=== PATIENT | female | born 1980 | race Caucasian/White ===

== ENCOUNTER 2021-08-08 16:36 | Emergency (ER) | payer BC ==
--- OUTSIDE RECORDS SUMMARY | 2021-08-08 16:41 | XMS REPORT | Continuity of Care Document ---
:1980 Author Organization [facility] t Address [address] [place] [address] Care Team Providers Name Role Phone Ngsalmaen_Tho Attending Clinician Unavailable Nguyen_Tho Admitting Clinician Unavailable Payers Payer Name Policy Type Policy Number Effective Date Expiration Date S ource [place] [id number] 2021 00:00:00 [place] Problems Condition Condition Condition Status Onset Resolution Last Treating Co mments Source Name Details Category Date Date Treatment Clinician Date Crohn's Crohn's Problem Active [place] [facility] Allergies, Adverse Reactions, Alerts Allergy Allergy Status Severity Reaction(s) Onset Inactive Treating Comm ents Source Name Type Date Date Clinician Penicill Allergy Active Mild to Anaphylaxis [place] g to moderate da substanc [facility] Social History Smoking Status Start Date Stop Date Source Heavy Tobacco Smoker [place] [facility] Medications Ordered Filled Start Stop Current Ordering Indication Dosage Frequency Signature Comments Components Source Medication Medication Date Date Medication? Clinician (SIG) Name Name azithromyci azithromyci No azithromyc [place] 250 mg n 250 mg in 250 mg da tablet TAKE tablet TAKE tablet [facility] 2 TABLETS 2 TABLETS TAKE 2 al (500 MG) BY (500 MG) BY TABLETS Health ORAL ROUTE ORAL ROUTE (500 MG) Outreac ONCE DAILY ONCE DAILY BY ORAL h FOR 1 DAY FOR 1 DAY ROUTE ONCE Program THEN 1 THEN 1 DAILY FOR TABLET (250 TABLET (250 1 DAY THEN MG) BY ORAL MG) BY ORAL 1 TABLET ROUTE ONCE ROUTE ONCE (250 MG) DAILY FOR 4 DAILY FOR 4 BY ORAL DAYS DAYS ROUTE ONCE DAILY FOR 4 DAYS Humira Humira No Humira [place] [facility] Saline Saline No 1spray( Q1D Saline [place] Nasal 0.65 Nasal 0.65 s) Nasal 0.65 da % spray % spray % spray [facility] aerosol aerosol aerosol al Take 1 Take 1 Take 1 Health spray every spray every spray Outreac day by day by every day h nasal route nasal route by nasal Program in the in the route in morning. morning. the morning. Immunizations Ordered Immunization Filled Immunization Date Status Commen ts Source Name Name Tdap Tdap 2018-03-09 Completed [place] 00:00:00 [facility] Vital Signs Vital Name Observation Time Observation Value Comments Source BP Diastolic 2021-04-05 00:00:00 70 [facility] Height 2021-04-05 00:00:00 63 [in_i] [facility] BMI (Body Mass 2021-04-05 00:00:00 35.4 kg/m2 [facility]) [facility] BP Systolic 2021-04-05 00:00:00 118 mm[Hg] [facility] Body Weight 2021-04-05 00:00:00 3200 [oz_av] [facility] Procedures Procedure Date / Time Performed Performing Clinician Sourc e Colonoscopy 2011-03-09 00:00:00 [facility] Tubal Ligation [place] [facility] Encounters Start End Encounter Admission Attending Care Care Encounter Source Date/Time Date/Time Type Type Clinicians Facility Department ID 2021-04-05 2021-04-05 Outpatient [facility] [id number] [place] 04:57:00 04:57:00 [facility] 2021-04-05 2021-04-05 [facility] [place] - [id number] [place] 00:00:00 00:00:00 Brent Coyle APRN-DIPPER AND BAKER-C: [facility] [address] [facility] S[place]q, [facility], [facility] [id number] [facility] , Ph. 2021-04-03 2021-04-03 Outpatient [facility] [id number] [place] 02:52:00 02:52:00 [id number] da [facility] Program Results This patient has no known results.
[2021-08-08] MEDS ORDERED: LIDOCAINE 1% MPF 5 ML VIAL ONE (16:58)
--- NOTE | 2021-08-08 17:16 | ER ---
Nurse's Notes [facility] Name: Vy Jauregui Age: 41 yrs Sex: Female : 1980 Arrival Date: 08/08/2021 Time: 16:38 Bed 11 Private MD: Diagnosis: Cutaneous abscess of right lower limb Presentation: 08/08 16:55 Chief complaint: Patient states: Spider bite to back of left thigh. Coronavirus screen: ld1 At this time, the client does not indicate any symptoms associated with coronavirus-19. Ebola Screen: No symptoms or risks identified at this time. Initial Sepsis Screen: Does the patient meet any 2 criteria? No. Patient's initial sepsis screen is negative. Does the patient have a suspected source of infection? No. Patient's initial sepsis screen is negative. Risk Assessment: Do you want to hurt yourself or someone else? Patient reports no desire to harm self or others. Onset of symptoms was August 08, 2021. 16:55 Method Of Arrival: Ambulatory ld1 16:55 Acuity: VEL 4 ld1 Triage Assessment: 16:56 General: Appears in no apparent distress. comfortable, Behavior is calm, cooperative, ld1 appropriate for age. Pain: Complains of pain in left hamstring Pain does not radiate. Pain currently is 8 out of 10 on a pain scale. EENT: No signs and/or symptoms were reported regarding the EENT system. Neuro: Level of Consciousness is awake, alert, obeys commands, Oriented to person, place, time, situation. Cardiovascular: Capillary refill < 3 seconds Patient's skin is warm and dry. Respiratory: Airway is patent Respiratory effort is even, unlabored. GI: Abdomen is flat, non-distended. : No signs and/or symptoms were reported regarding the genitourinary system. Derm: Abscess located on left leg. 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 - Social history:: Smoking status: Patient reports the use of cigarette tobacco products, smokes one-half pack cigarettes per day, Patient/guardian denies using alcohol. Screenin:59 Abuse screen: Denies threats or abuse. Nutritional screening: No deficits noted. tw2 Tuberculosis screening: No symptoms or risk factors identified. Fall Risk None identified. Assessment: 17:25 Reassessment: See triage assessment. General: Appears in no apparent distress. ld1 comfortable, Behavior is calm, cooperative, appropriate for age. Pain:. Vital Signs: 16:55 BP 129 / 76; Pulse 85; Resp 18; Temp 98.3(TE); Pulse Ox 99% on R/A; Weight 86.18 kg; ld1 Height 5 ft. 3 in. (160.02 cm); Pain 8/10; 16:55 Body Mass Index 33.66 (86.18 kg, 160.02 cm) ld1 ED Course: 16:38 Patient arrived in ED. am2 16:48 [facility]ah[facility]erril [facility] 16:48 Narendra Hawk MD is Attending Physician. [facility] 16:48 Bed in low position. Call light in reach. Pulse ox on. NIBP on. tw2 16:55 Rain Nicholas, JESUS is Primary Nurse. ld1 16:55 Triage completed. ld1 16:56 Arm band placed on right wrist. ld1 17:25 No provider procedures requiring assistance completed. Patient did not have IV access ld1 during this emergency room visit. Administered Medications: No medications were administered Medication: 17:25 VIS not applicable for this client. ld1 Outcome: 17:15 Discharge ordered by . [facility] 17:25 Discharged to home ambulatory. ld1 17:25 Condition: stable 17:25 Discharge instructions given to patient, Instructed on discharge instructions, follow up and referral plans. medication usage, Demonstrated understanding of instructions, follow-up care, medications, Prescriptions given X 2. 17:26 Patient left the ED. ld1 Signatures: Marnie Martins RN RN tw2 Rohini Rouse am2 Rain Nicholas RN RN ld1 Zahida Becerril FNP [place] [id number] Corrections: (The following items were deleted from the chart) 16:57 16:56 Allergies: No Known Allergies; ld1 ld1 16:57 16:56 PMHx: None; ld1 ld1 16:57 16:56 PSHx: None; ld1 ld1
--- NOTE | 2021-08-08 17:16 | EDPHYS ---
Physician Documentation [facility] Name: Vy Jauregui Age: 41 yrs Sex: Female : 1980 Arrival Date: 08/08/2021 Time: 16:38 Bed 11 Private MD: ED Physician Narendra Hawk HPI: 08/08 17:00 This 41 yrs old Female presents to ER via Ambulatory with complaints of spider bite. jh7 17:00 Onset: The symptoms/episode began/occurred 4 day(s) ago. Patient complains of spider jh7 bite to her left posterior thigh since Thursday. Reports increased redness, tenderness, and swelling. She denies any fever.. 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 - Social history:: Smoking status: Patient reports the use of cigarette tobacco products, smokes one-half pack cigarettes per day, Patient/guardian denies using alcohol. ROS: 17:00 Constitutional: Negative for fever, chills, and weight loss, Neck: Negative for injury, jh7 pain, and swelling, Cardiovascular: Negative for chest pain, palpitations, and edema, Respiratory: Negative for shortness of breath, cough, wheezing, and pleuritic chest pain, Abdomen/GI: Negative for abdominal pain, nausea, vomiting, diarrhea, and constipation, MS/Extremity: Negative for injury and deformity, Neuro: Negative for headache, weakness, numbness, tingling, and seizure. 17:00 Skin: Positive for abscess, Negative for abrasions, laceration(s). 17:00 All other systems are negative. Exam: 17:00 Constitutional: This is a well developed, well nourished patient who is awake, alert, jh7 and in no acute distress. ENT: Nares patent. No nasal discharge, no septal abnormalities noted. Tympanic membranes are normal and external auditory canals are clear. Oropharynx with no redness, swelling, or masses, exudates, or evidence of obstruction, uvula midline. Mucous membranes moist. Cardiovascular: Regular rate and rhythm with a normal S1 and S2. No gallops, murmurs, or rubs. Normal PMI, no JVD. No pulse deficits. Respiratory: Lungs have equal breath sounds bilaterally, clear to auscultation and percussion. No rales, rhonchi or wheezes noted. No increased work of breathing, no retractions or nasal flaring. Abdomen/GI: Soft, non-tender, with normal bowel sounds. No distension or tympany. No guarding or rebound. No evidence of tenderness throughout. Back: No spinal tenderness. No costovertebral tenderness. Full range of motion. MS/ Extremity: Pulses equal, no cyanosis. Neurovascular intact. Full, normal range of motion. Neuro: Awake and alert, GCS 15, oriented to person, place, time, and situation. Motor strength 5/5 in all extremities. Sensory grossly intact. Normal gait. 17:00 Skin: abscess, 2.5 cm abscess to the left posterior thigh the area is erythematous, indurated, and has a small area of fluctuance in the center.. Vital Signs: 16:55 BP 129 / 76; Pulse 85; Resp 18; Temp 98.3(TE); Pulse Ox 99% on R/A; Weight 86.18 kg; ld1 Height 5 ft. 3 in. (160.02 cm); Pain 8/10; 16:55 Body Mass Index 33.66 (86.18 kg, 160.02 cm) ld1 Procedures: 17:15 I \T\ D: Incision and drainage was performed for an abscess of the left left hamstring jh7 Prepped with Betadine, Anesthetized with 5 ml's 1% Lidocaine. Incised with #11 blade. Drained small amount purulent fluid. Loculations removed. Packed with iodoform gauze, Dressing: sterile 4x4 gauze, the patient tolerated the procedure well. MDM: 16:48 Patient medically screened. [facility] 17:25 Differential diagnosis: Abscess. Data reviewed: vital signs, nurses notes. Data [facility] interpreted: Pulse oximetry: is 99 %. Interpretation: normal. Counseling: I had a detailed discussion with the patient and/or guardian regarding: the historical points, exam findings, and any diagnostic results supporting the discharge/admit diagnosis, to return to the emergency department if symptoms worsen or persist or if there are any questions or concerns that arise at home. Response to treatment: the patient's symptoms have markedly improved after treatment. ED course: Patient remained stable throughout the ER visit. Home abscess care was discussed as well as her prescriptions. If the patient has any other concerns, she may return to the ER at any time. 08/08 17:14 Order name: I\T\D Setup; Complete Time: 17:18 [facility] Administered Medications: No medications were administered Disposition Summary: 08/08/21 17:15 Discharge Ordered Location: Home [facility] Problem: new [facility] Symptoms: have improved [facility] Condition: Stable [facility] Diagnosis - Cutaneous abscess of right lower limb [facility] Followup: [facility] - With: Private Physician - When: 2 - 3 days - Reason: Recheck today's complaints Discharge Instructions: - Discharge Summary Sheet tw2 - Skin Abscess 7 - Incision and Drainage [facility] Forms: - Work release form tw2 - Medication Reconciliation Form 7 - Thank You Letter [facility] - Antibiotic Education [facility] Prescriptions: - mupirocin 2 % Topical ointment - apply 1 application by TOPICAL route 3 times per day for 7 days; 1 tube; [facility] Refills: 0, Product Selection Permitted - Bactrim DS 800-160 mg Oral Tablet - take 1 tablet by ORAL route every 12 hours for 10 days; 20 tablet; Refills: 0, 7 Product Selection Permitted Signatures: Rain Nicholas, RN RN ld1 Zahida Becerril, SHALLOT PACKER SHALLOT PACKER 7 Corrections: (The following items were deleted from the chart) 16:57 16:56 Allergies: No Known Allergies; ld1 ld1 16:57 16:56 PMHx: None; ld1 ld1 16:57 16:56 PSHx: None; ld1 ld1
[2021-08-08 18:42] VITALS: BP 129/76; TEMP 98.3; O2SAT 99
== END 2021-08-08 17:26 | disposition home or self-care (01) ==
LOC: ER 16:36
PROC: 0H9HXZZ Drainage of Right Upper Leg Skin, External Approach (ICD-10-PCS; principal; 2021-08-08)
DX: L02.415 Cutaneous abscess of right lower limb (principal); F17.210 Nicotine dependence, cigarettes, uncomplicated; Z88.0 Allergy status to penicillin
CPT/HCPCS: 99283

== ENCOUNTER 2022-04-03 08:45 | Day surgery (SDC) | payer BC ==
[2022-04-03] MEDS ORDERED: INFLIXIMAB-ABDA 400 MG in NA CHLORIDE 0.9% 250 ML IV ONE (09:00)
[2022-04-03] MEDS ORDERED: DIPHENHYDRAMINE 25 MG TAB/CAP ONE (09:17)
[2022-04-03] MEDS ORDERED: ACETAMINOPHEN 325 MG TABLET ONE (09:17)
[2022-04-03 09:26] VITALS: BMI 29.2
[2022-04-03] MEDS ORDERED: NA CHLORIDE 0.9% 250 ML ONE (09:27)
[2022-04-03 16:22] VITALS: BP 116/70; TEMP 98.5; O2SAT 99
== END 2022-04-03 12:48 | disposition home or self-care (01) ==
LOC: DS 08:45
PROVIDERS: ATTEND Internal Medicine Gastroenterology
DX: K50.911 Crohn's disease, unspecified, with rectal bleeding (principal)
CPT/HCPCS: 96365; 96366; Q5104; J7050 ×2

== ENCOUNTER 2022-04-17 08:00 | Day surgery (SDC) | payer BC ==
[2022-04-17] MEDS ORDERED: INFLIXIMAB-ABDA 400 MG in NA CHLORIDE 0.9% 250 ML IV ONE (08:30)
[2022-04-17] MEDS ORDERED: NA CHLORIDE 0.9% 250 ML ONE (08:34)
[2022-04-17 10:48] VITALS: BMI 28.3
[2022-04-17 11:06] VITALS: BP 111/57; TEMP 97.8; O2SAT 98
== END 2022-04-17 11:02 | disposition home or self-care (01) ==
LOC: DS 08:00
PROVIDERS: ATTEND Internal Medicine Gastroenterology
DX: K50.911 Crohn's disease, unspecified, with rectal bleeding (principal)
CPT/HCPCS: 96365; 96366; J7050; Q5104

== ENCOUNTER 2022-05-15 08:22 | Day surgery (SDC) | payer BC ==
[2022-05-15] MEDS ORDERED: NA CHLORIDE 0.9% 250 ML ONE (08:52)
[2022-05-15] MEDS ORDERED: INFLIXIMAB-ABDA 400 MG in NA CHLORIDE 0.9% 250 ML IV ONE (09:00)
[2022-05-15 12:39] VITALS: TEMP 98.2
[2022-05-15 12:43] VITALS: BP 109/59; O2SAT 97
== END 2022-05-15 11:50 | disposition home or self-care (01) ==
LOC: DS 08:22
PROVIDERS: ATTEND Internal Medicine Gastroenterology
DX: K50.911 Crohn's disease, unspecified, with rectal bleeding (principal)
CPT/HCPCS: 96365; 96366; Q5104; J7050 ×2

== ENCOUNTER 2022-10-16 07:55 | Day surgery (SDC) | payer BC ==
[2022-10-16] MEDS ORDERED: DIPHENHYDRAMINE 25 MG TAB/CAP ONE (08:22)
[2022-10-16] MEDS ORDERED: NA CHLORIDE 0.9% 250 ML ONE (08:22)
[2022-10-16] MEDS ORDERED: ACETAMINOPHEN 500 MG TAB ONE (08:22)
[2022-10-16] MEDS ORDERED: INFLIXIMAB-ABDA 400 MG in NA CHLORIDE 0.9% 250 ML IV ONE (08:30)
[2022-10-16 13:34] VITALS: O2SAT 99; BMI 29.2
[2022-10-16 13:44] VITALS: BP 98/58; TEMP 97.9
== END 2022-10-16 11:28 | disposition home or self-care (01) ==
LOC: DS 07:55
PROVIDERS: ATTEND Internal Medicine Gastroenterology
DX: K50.911 Crohn's disease, unspecified, with rectal bleeding (principal)
CPT/HCPCS: 96365; 96366; Q5104; J7050 ×2

== ENCOUNTER 2023-01-13 07:09 | Day surgery (SDC) | payer BC ==
[2023-01-13] MEDS ORDERED: INFLIXIMAB-ABDA 400 MG in NA CHLORIDE 0.9% 250 ML IV ONE (08:30)
[2023-01-13] MEDS ORDERED: NA CHLORIDE 0.9% 250 ML ONE (08:33)
[2023-01-13 11:05] VITALS: BMI 28.3
[2023-01-13 13:18] VITALS: BP 111/75; TEMP 98.6; O2SAT 98
== END 2023-01-13 11:00 | disposition home or self-care (01) ==
LOC: DS 07:09
PROVIDERS: ATTEND Internal Medicine Gastroenterology
DX: K50.911 Crohn's disease, unspecified, with rectal bleeding (principal)
CPT/HCPCS: 96365; 96366; Q5104; J7050 ×2

== ENCOUNTER 2023-07-16 07:47 | Day surgery (SDC) | payer BC ==
[2023-07-16] MEDS: NA CHLORIDE 0.9% 100 ML ONE (08:14)
[2023-07-16] MEDS: INFLIXIMAB IV ONE (08:30)
[2023-07-16] MEDS: NA CHLORIDE 0.9% IV ONE (08:30)
[2023-07-16 09:30] VITALS: BMI 29.2
[2023-07-16 11:39] VITALS: BP 100/50; TEMP 97.6; O2SAT 100
== END 2023-07-16 10:44 | disposition home or self-care (01) ==
LOC: DS 07:47
PROVIDERS: ATTEND Internal Medicine Gastroenterology
DX: K50.911 Crohn's disease, unspecified, with rectal bleeding (principal)
CPT/HCPCS: J1745; J7050; 96365; 96366